=== PATIENT | male | born 1995 | race African-American/Black ===

== ENCOUNTER 2024-03-18 01:45 | Emergency (ER) | payer OTHER ==
[~2024-03-18] VITALS: Ht 177.8 cm; Wt 79.4 kg
[2024-03-18 01:50] VITALS: BP 124/84; PULSE 91; RESP 16; TEMP 97.2; O2SAT 100
[2024-03-18] MEDS ORDERED: LORA1T1237 PO (02:06)
== END 2024-03-18 02:10 | disposition home or self-care (01) ==
LOC: MED 01:45
DX: J30.9 Allergic rhinitis, unspecified (principal); R03.0 Elevated blood-pressure reading, without diagnosis of hypertension; Z79.899 Other long term (current) drug therapy
CPT/HCPCS: 99282